=== PATIENT | female | born 1960 | race Caucasian/White ===

== ENCOUNTER 2024-06-22 05:45 | Inpatient (IN) ==
[2024-06-22 06:23] LABS: Basophils # (auto) 0.04 K/uL (0.00-0.20); Basophils % (auto) 0.4 %; Eosinophils # (auto) 0.12 K/uL (0.00-0.50); Eosinophils % (auto) 1.3 %; Hematocrit (blood only) 34.8 % (37.0-47.0); Immature Granulocytes # (auto) 0.04 K/uL (0.01-0.20); Immature Granulocytes % (auto) 0.4 %; Lymphocytes # (auto) 1.58 K/uL (1.20-3.40); Lymphocytes % (auto) 17.3 %; Mean Corpuscular Hemoglobin 32.3 pg (25.0-34.0); Mean Corpuscular Hgb Conc 34.5 g/dL (32.0-36.0); Mean Corpuscular Volume 93.5 fL (80.0-100.0); Mean Platelet Volume 9.5 fL (9.4-12.4); Monocytes # (auto) 0.65 K/uL (0.11-0.59); Monocytes % (auto) 7.1 %; Neutrophils # (auto) 6.69 K/uL (1.40-6.50); Neutrophils % (auto) 73.5 %; Platelet Count 243 K/uL (130-400); RDW Coefficient of Variation 12.5 % (11.5-14.5); RDW Standard Deviation 43.1 fL (36.4-46.3); Red Blood Count 3.72 M/uL (4.20-5.40); White Blood Count 9.12 K/ul (4.8-10.8)
--- NOTE | 2024-06-22 06:34 | Emergency Department Note ---
Impression & Plan Acute pulmonary embolism, Acute respiratory failure with hypoxia ED Provider Note NAME: ALEX BARNES AGE: 63 SEX: F : 1960 ARRIVES VIA: Ambulance INFORMANT: Patient, ED PROVIDER(S): Scottie Baca DO CHIEF COMPLAINT: Chest pain and shortness of breath HPI: Patient is a 63-year-old female who presents to the ER for chest pain and not acting right. Symptoms started this morning around 4:45 AM per the who is present at bedside and provides additional history. Patient notes that chest pain started suddenly and has been constant. She also had shortness of breath. Pain is worse with breathing. They have been traveling in the semitruck. Patient denies any headache or change in vision. No belly pain, nausea, vomiting or diarrhea. provides additional history as well and notes that patient did have some diarrhea the other day. No dysuria, urgency, or frequency but she did urinate herself. He notes that she came out of the truck the wrong way and did not make it to the bathroom on time and urinated herself. ADDITIONAL HISTORY OBTAINED: As per the she did have some diarrhea 2 days ago and has been confused today. Chronic Medical/Social Conditions Affecting Care: Per HPI PAST MEDICAL HISTORY:See Below PAST SURGICAL HISTORY:See Below FAMILY HISTORY:See Below SOCIAL HISTORY:See Below HOME MEDICATIONS:See Below ALLERGIES:See Below VITALS:See Below PHYSICAL EXAMINATION: GENERAL: Sitting up in bed, alert, well appearing, well nourished, no distress, non-toxic EYE EXAM: normal conjunctiva. PERRL and EOM's grossly intact. OROPHARYNX: no exudate, no erythema, lips, buccal mucosa, and tongue normal and mucous membranes are moist NECK: supple, no nuchal rigidity, no adenopathy, non-tender LUNGS: Clear to auscultation. Normal chest wall mechanics HEART: no murmurs, S1 normal and S2 normal ABDOMEN: abdomen soft, non-tender, normo-active bowel sounds, no masses, no rebound or guarding. UPPER EXTREMITIES: upper extremities are grossly normal. LOWER EXTREMITIES: No pitting edema. NEURO EXAM: Awake alert oriented to person not year, cranial nerves II-XII intact, normal speech, no weakness of arms, no weakness of legs. No drift. Finger to nose intact. Gross sensation intact. MEDICAL DECISION MAKING: Patient is a 63-year-old female who presents ER for the below stated complaint. IV was established and blood work was obtained. She was found to be hypoxic and placed on 3 L nasal cannula. She was 87% on room air. Labs showed no significant leukocytosis or anemia. BMP with mild hypokalemia 3.2. LFTs and bilirubin were unremarkable. Troponin resulted at 211. She was given aspirin prior to arrival via EMS 324 as well as a DuoNeb. She was given nitro while here in the ER. D-dimer was obtained and due to issues with lab and hemolyzation was significant delayed and then redrawn and consequently patient was sent to CT as she was hypoxic having pleuritic chest pain with an elevated troponin to rule out PE. CT angio showed bilateral PEs. Discussed with radiology who called and noted there were bilateral PEs. Patient was placed on heparin drip and bolus following discussion with patient and family. Discussed with the groundskeeping maintenance who evaluate the patient at bedside. Recommended discussing with case here to see if she was a candidate for intervention although he favors very unlikely. I discussed with Dr. Bo Avila who reviewed it with their interventionalists and noted that patient would not be a candidate. Patient will stay here. She remained on nasal cannula and heparin drip. Again I favor the troponin is likely secondary to the right heart strain from PEs. Patient and family declined TNK. Consults/Care Managements Discussions: Per [facility] Triage Nursing notes reviewed. Limited review of prior medical records performed Vital Signs: reviewed and remarkable for hypertensive and tachycardic Differential diagnosis: Cardiac ischemia, aortic dissection, pulmonary embolism, pneumothorax, pneumonia, pericarditis, myocarditis, esophageal rupture, GERD, cholecystitis, pancreatitis, musculoskeletal, as well as other pathologies. Differential diagnoses includes but is not limited to toxic, metabolic, infectious, traumatic, cardiac, neurologic, hematologic, psychiatric and inflammatory etiologies. ER treatment provided: See below Diagnostics interpreted by me include EKG and cardiac monitoring as listed below: -Cardiac Monitoring: An order was placed for continuous cardiac monitoring. The monitor shows a rate of 100 with sinus rhythm. -ECG: Sinus tachycardia rate of 111 Normal axis Poor baseline Nonspecific ST wave changes V5 3 through V6 EKG #2 Sinus tachycardia rate of 113 Normal axis No PVCs QTc [address] ST depressions in V2 through V6 -Laboratory studies:Interpreted by me as stated above in MDM and shown below. Imaging studies: Xrays: As interpreted by me: Portable AP upright 1 view of the chest shows cephalization CTs show: none Procedures:none Critical Care: I have personally spent 75 minutes of critical care time in the direct management of this patient. This includes bedside care, interpretation of diagnostic studies, and testing, discussion with consultants, patient, and family members, and other required patient management activities. This 75 minutes is in excess of all separately billable procedures. Past Med/Surg History Problem List (Updated 06/22/24 @ 12:10 by Scottie Baca DO) Bipolar 1 disorder Mood disorder Atrial fibrillation HTN (hypertension) Acute respiratory failure with hypoxia (Acute) Elevated troponin Acute pulmonary embolism (Acute) Social History Smoking Status: Never smoker Hx Alcohol Use: No Hx Substance Use: No Preferred Language: [place]an Communication Ability: Effective Chef French Required: No Beliefs That Will Affect Care: None Current Living Situation: Spouse Feels Safe at Home: Yes Assistive Devices: Glasses Home Meds Home Medications Medication Instructions Recorded Confirmed aspirin 81 mg capsule 81 mg PO DAILY 06/22/24 06/22/24 famotidine 40 mg tablet 40 mg PO DAILY 06/22/24 06/22/24 metoprolol tartrate 25 mg tablet 25 mg PO BID 06/22/24 06/22/24 venlafaxine 150 mg 150 mg PO DAILY 06/22/24 06/22/24 capsule,extended release 24 hr venlafaxine 37.5 mg 37.5 mg PO DAILY 06/22/24 06/22/24 capsule,extended release 24 hr ziprasidone HCl 80 mg capsule 80 mg PO BID 06/22/24 06/22/24 (Ranjith) Results & Data (ED) Vital Signs Vital Signs - 24 hr 06/22/24 05:53 06/22/24 06:02 06/22/24 06:03 Temperature 36.8 C Temperature Source Oral Pulse Rate 114 H 110 H Pulse Rate [Apical] Pulse Rate from SpO2 Sensor Respiratory Rate 24 Blood Pressure 148/98 H Blood Pressure [Right Arm] Blood Pressure Mean 114 Blood Pressure Mean [Right Arm] Pulse Oximetry 97 94 Oxygen Delivery Method Nasal Cannula Room Air Oxygen Flow Rate 2 Sepsis Recent Fever Within 48 Hours No Sepsis New/Unexplained Change in Mental Status No Sepsis Action Taken by Nursing No Action Required Oxygen Flow Rate - Titration Pulse Oximetry Post Tiitration 06/22/24 06:45 06/22/24 07:05 06/22/24 07:08 Temperature Temperature Source Pulse Rate 120 H Pulse Rate [Apical] 113 H Pulse Rate from SpO2 Sensor Respiratory Rate 26 H 25 H Blood Pressure Blood Pressure [Right Arm] 151/101 H Blood Pressure Mean Blood Pressure Mean [Right Arm] 117 Pulse Oximetry 93 88 L 0 L Oxygen Delivery Method Room Air Room Air Oxygen Flow Rate 88 Sepsis Recent Fever Within 48 Hours Sepsis New/Unexplained Change in Mental Status Sepsis Action Taken by Nursing Oxygen Flow Rate - Titration 2 Pulse Oximetry Post Tiitration 94 06/22/24 07:11 06/22/24 07:11 06/22/24 07:11 Temperature Temperature Source Pulse Rate Pulse Rate [Apical] Pulse Rate from SpO2 Sensor Respiratory Rate Blood Pressure 141/98 H 141/98 H 141/98 H Blood Pressure [Right Arm] Blood Pressure Mean 115 115 115 Blood Pressure Mean [Right Arm] Pulse Oximetry Oxygen Delivery Method Oxygen Flow Rate Sepsis Recent Fever Within 48 Hours Sepsis New/Unexplained Change in Mental Status Sepsis Action Taken by Nursing Oxygen Flow Rate - Titration Pulse Oximetry Post Tiitration 06/22/24 07:11 06/22/24 07:11 06/22/24 07:11 Temperature Temperature Source Pulse Rate 115 H Pulse Rate [Apical] Pulse Rate from SpO2 Sensor 114 H Respiratory Rate 23 Blood Pressure 141/98 H 141/98 H Blood Pressure [Right Arm] Blood Pressure Mean 115 115 Blood Pressure Mean [Right Arm] Pulse Oximetry 95 Oxygen Delivery Method Nasal Cannula Oxygen Flow Rate 2 Sepsis Recent Fever Within 48 Hours Sepsis New/Unexplained Change in Mental Status Sepsis Action Taken by Nursing Oxygen Flow Rate - Titration Pulse Oximetry Post Tiitration 06/22/24 07:11 06/22/24 07:30 06/22/24 07:30 Temperature Temperature Source Pulse Rate Pulse Rate [Apical] Pulse Rate from SpO2 Sensor Respiratory Rate Blood Pressure 141/98 H 133/98 133/98 Blood Pressure [Right Arm] Blood Pressure Mean 115 112 112 Blood Pressure Mean [Right Arm] Pulse Oximetry Oxygen Delivery Method Oxygen Flow Rate Sepsis Recent Fever Within 48 Hours Sepsis New/Unexplained Change in Mental Status Sepsis Action Taken by Nursing Oxygen Flow Rate - Titration Pulse Oximetry Post Tiitration 06/22/24 07:30 06/22/24 07:30 06/22/24 07:30 Temperature Temperature Source Pulse Rate Pulse Rate [Apical] Pulse Rate from SpO2 Sensor Respiratory Rate Blood Pressure 133/98 133/98 133/98 Blood Pressure [Right Arm] Blood Pressure Mean 112 112 112 Blood Pressure Mean [Right Arm] Pulse Oximetry Oxygen Delivery Method Oxygen Flow Rate Sepsis Recent Fever Within 48 Hours Sepsis New/Unexplained Change in Mental Status Sepsis Action Taken by Nursing Oxygen Flow Rate - Titration Pulse Oximetry Post Tiitration 06/22/24 07:30 06/22/24 07:30 06/22/24 07:30 Temperature Temperature Source Pulse Rate Pulse Rate [Apical] Pulse Rate from SpO2 Sensor Respiratory Rate Blood Pressure 133/98 133/98 133/98 Blood Pressure [Right Arm] Blood Pressure Mean 112 112 112 Blood Pressure Mean [Right Arm] Pulse Oximetry Oxygen Delivery Method Oxygen Flow Rate Sepsis Recent Fever Within 48 Hours Sepsis New/Unexplained Change in Mental Status Sepsis Action Taken by Nursing Oxygen Flow Rate - Titration Pulse Oximetry Post Tiitration 06/22/24 07:30 06/22/24 07:30 06/22/24 07:47 Temperature Temperature Source Pulse Rate 111 H Pulse Rate [Apical] Pulse Rate from SpO2 Sensor 110 H Respiratory Rate 28 H Blood Pressure 133/98 133/98 Blood Pressure [Right Arm] Blood Pressure Mean 112 112 Blood Pressure Mean [Right Arm] Pulse Oximetry 96 Oxygen Delivery Method Oxygen Flow Rate Sepsis Recent Fever Within 48 Hours Sepsis New/Unexplained Change in Mental Status Sepsis Action Taken by Nursing Oxygen Flow Rate - Titration Pulse Oximetry Post Tiitration 06/22/24 08:07 06/22/24 08:07 06/22/24 08:07 Temperature Temperature Source Pulse Rate Pulse Rate [Apical] Pulse Rate from SpO2 Sensor Respiratory Rate Blood Pressure 118/93 118/93 118/93 Blood Pressure [Right Arm] Blood Pressure Mean 100 100 100 Blood Pressure Mean [Right Arm] Pulse Oximetry Oxygen Delivery Method Oxygen Flow Rate Sepsis Recent Fever Within 48 Hours Sepsis New/Unexplained Change in Mental Status Sepsis Action Taken by Nursing Oxygen Flow Rate - Titration Pulse Oximetry Post Tiitration 06/22/24 08:07 06/22/24 08:08 06/22/24 08:23 Temperature Temperature Source Pulse Rate 115 H 111 H Pulse Rate [Apical] Pulse Rate from SpO2 Sensor 115 H 111 H Respiratory Rate 23 26 H Blood Pressure 118/93 Blood Pressure [Right Arm] Blood Pressure Mean 100 Blood Pressure Mean [Right Arm] Pulse Oximetry 97 97 Oxygen Delivery Method Nasal Cannula Oxygen Flow Rate 2 Sepsis Recent Fever Within 48 Hours Sepsis New/Unexplained Change in Mental Status Sepsis Action Taken by Nursing Oxygen Flow Rate - Titration Pulse Oximetry Post Tiitration 06/22/24 08:30 06/22/24 08:30 06/22/24 08:30 Temperature Temperature Source Pulse Rate Pulse Rate [Apical] Pulse Rate from SpO2 Sensor Respiratory Rate Blood Pressure 140/98 140/98 140/98 Blood Pressure [Right Arm] Blood Pressure Mean 115 115 115 Blood Pressure Mean [Right Arm] Pulse Oximetry Oxygen Delivery Method Oxygen Flow Rate Sepsis Recent Fever Within 48 Hours Sepsis New/Unexplained Change in Mental Status Sepsis Action Taken by Nursing Oxygen Flow Rate - Titration Pulse Oximetry Post Tiitration 06/22/24 08:30 06/22/24 08:30 06/22/24 08:30 Temperature Temperature Source Pulse Rate Pulse Rate [Apical] Pulse Rate from SpO2 Sensor Respiratory Rate Blood Pressure 140/98 140/98 140/98 Blood Pressure [Right Arm] Blood Pressure Mean 115 115 115 Blood Pressure Mean [Right Arm] Pulse Oximetry Oxygen Delivery Method Oxygen Flow Rate Sepsis Recent Fever Within 48 Hours Sepsis New/Unexplained Change in Mental Status Sepsis Action Taken by Nursing Oxygen Flow Rate - Titration Pulse Oximetry Post Tiitration 06/22/24 08:30 06/22/24 08:30 06/22/24 08:32 Temperature Temperature Source Pulse Rate 111 H Pulse Rate [Apical] Pulse Rate from SpO2 Sensor 111 H Respiratory Rate 29 H Blood Pressure 140/98 140/98 Blood Pressure [Right Arm] Blood Pressure Mean 115 115 Blood Pressure Mean [Right Arm] Pulse Oximetry 96 Oxygen Delivery Method Oxygen Flow Rate Sepsis Recent Fever Within 48 Hours Sepsis New/Unexplained Change in Mental Status Sepsis Action Taken by Nursing Oxygen Flow Rate - Titration Pulse Oximetry Post Tiitration 06/22/24 09:11 Temperature Temperature Source Pulse Rate 119 H Pulse Rate [Apical] Pulse Rate from SpO2 Sensor Respiratory Rate 30 H Blood Pressure Blood Pressure [Right Arm] Blood Pressure Mean Blood Pressure Mean [Right Arm] Pulse Oximetry Oxygen Delivery Method Oxygen Flow Rate Sepsis Recent Fever Within 48 Hours Sepsis New/Unexplained Change in Mental Status Sepsis Action Taken by Nursing Oxygen Flow Rate - Titration Pulse Oximetry Post Tiitration Laboratory Data 06/22/24 05:50 06/22/24 05:50 Lab Results 06/22/24 06/22/24 06/22/24 Range/Units 05:50 05:50 07:44 WBC 9.12 (4.8-10.8) K/ul RBC 3.72 L (4.20-5.40) M/uL Hgb 12.0 (12.0-16.0) g/dl Hct 34.8 L (37.0-47.0) % MCV 93.5 (80.0-100.0) fL MCH 32.3 (25.0-34.0) pg MCHC 34.5 (32.0-36.0) g/dL RDW Std Deviation 43.1 (36.4-46.3) fL RDW Coeff of Nancy 12.5 (11.5-14.5) % Plt Count 243 (130-400) K/uL MPV 9.5 (9.4-12.4) fL Immature Gran % (Auto) 0.4 % Neut % (Auto) 73.5 % Lymph % (Auto) 17.3 % Motley % (Auto) 7.1 % Eos % (Auto) 1.3 % Baso % (Auto) 0.4 % Neut # (Auto) 6.69 H (1.40-6.50) K/uL Lymph # (Auto) 1.58 (1.20-3.40) K/uL Motley # (Auto) 0.65 H (0.11-0.59) K/uL Eos # (Auto) 0.12 (0.00-0.50) K/uL Baso # (Auto) 0.04 (0.00-0.20) K/uL Immature Gran # (Auto) 0.04 (0.01-0.20) K/uL PT 11.3 (9.0-12.0) Seconds INR 1.0 (0.9-1.1) D-Dimer 02846 H* Cancelled (0-500) ug/L FEU Sodium 136 (136-145) mmol/L Potassium 3.2 L (3.5-5.1) mmol/L Chloride 103 (98-107) mmol/L Carbon Dioxide 23 (21-32) mmol/L Anion Gap 10 (3-11) BUN 12 (6-23) mg/dl Creatinine 1.29 H (0.6-1.2) mg/dl Est Cr Clr Drug Dosing 50.2 ml/min eGFR 46.06 BUN/Creatinine Ratio 9.3 L (10-20) Glucose 155 H (70-99(Fasting)) mg/dl Calcium 8.6 (8.6-10.3) mg/dl Magnesium 2.0 (1.7-2.4) mg/dl Total Bilirubin 0.5 (0.2-1.0) mg/dl AST 32 (13-39) U/L ALT 24 (7-52) U/L Alkaline Phosphatase 73 (34-104) U/L Troponin I High Sens 211.1 H* 518.0 H* D (0-14) pg/ml Total Protein 6.6 (6.0-8.3) gm/dl Albumin 4.2 (3.4-5.0) gm/dl Globulin 2.4 L (2.5-4.0) gm/dl Albumin/Globulin Ratio 1.8 (0.9-2) Lipase 10 L (11-82) U/L Adenovirus (PCR) Not Detected (NotDetected) B. pertussis DNA (PCR) Not Detected (NotDetected) B.parapertussis DNA PCR Not Detected (NotDetected) C. pneumoniae DNA (PCR) Not Detected (NotDetected) Coronavirus OC43 (PCR) Not Detected (NotDetected) Coronavirus HKU1 (PCR) Not Detected (NotDetected) Coronavirus 229E (PCR) Not Detected (NotDetected) SARS-CoV-2 (PCR) Not Detected (NotDetected) Coronavirus NL63 (PCR) Not Detected (NotDetected) Human Metapneumovir PCR Not Detected (NotDetected) Influenza Type A (PCR) Not Detected (NotDetected) Influenza Type B (PCR) Not Detected (NotDetected) M. pneumoniae (PCR) Not Detected (NotDetected) Parainfluenza 1 (PCR) Not Detected (NotDetected) Parainfluenza 2 (PCR) Not Detected (NotDetected) Parainfluenza 3 (PCR) Not Detected (NotDetected) Parainfluenza 4 (PCR) Not Detected (NotDetected) RSV (PCR) Not Detected (NotDetected) Entero/Rhino (PCR) Not Detected (NotDetected) Administered Medications Heparin Sodium/Dextrose (Heparin 58992 Unit/500 Ml D5w) 25,000 units in 500 mls @ 28 mls/hr IV .[id number] TAVON; Protocol Stop: 07/22/24 08:44 Last Admin: 06/22/24 09:06 Dose: 1,400 units/hr, 28 mls/hr Documented By: TRANG Co-signed By: ISADORA Lactated Ringer's (Lr) 1,000 mls @ 100 mls/hr IV .Q10H TAVON Stop: 06/22/24 21:29 Last Admin: 06/22/24 11:39 Dose: 100 mls/hr Documented By: GABBY Discontinued Medications Heparin Sodium (Porcine) (Heparin Sod (Porcine) 1000 Unit/Ml) 1 units IV NOW ONE Stop: 06/22/24 08:41 Last Admin: 06/22/24 09:02 Dose: 6,000 units Documented By: TRANG Co-signed By: ISADORA Heparin Sodium/Dextrose (Heparin Iv Adult Wt-Based Standard W/ Initial Bolus Protocol) 1 each IV NOW STA; Protocol Stop: 06/22/24 08:26 Last Admin: 06/22/24 09:19 Dose: Not Given Documented By: TRANG Sodium Chloride (Nss) 1,000 mls @ 999 mls/hr IV .Q1H1M ONE Stop: 06/22/24 07:34 Last Infusion: 06/22/24 09:11 Dose: Infused Documented By: Admin: 06/22/24 06:44 Dose: 999 mls/hr Documented By: MEGAN Ioversol (Optiray 320 125ml) 118 ml IV ONCE ONE Stop: 06/22/24 07:56 Last Admin: 06/22/24 07:56 Dose: 118 ml Documented By: ANDREA Miscellaneous Information (Patient's Allergy Info Needs Entered) 1 each N/A Q30M STA Stop: 06/22/24 11:15 Last Admin: 06/22/24 11:40 Dose: 1 each Documented By: GABBY Nitroglycerin (Nitroglycerin Sl 0.4 Mg/Tab Tab) 0.4 mg SL NOW STA Stop: 06/22/24 06:35 Last Admin: 06/22/24 06:44 Dose: 0.4 mg Documented By: MEGAN Potassium Chloride (Potassium Chloride Crtab 20 Meq Tabcr) 40 meq PO NOW STA Stop: 06/22/24 07:20 Last Admin: 06/22/24 07:25 Dose: 40 meq Documented By: AM Imaging Data Radiologist's Impression: Chest X-Ray 06/22/24 05:46 EXAM: XR chest 1V portable CLINICAL HISTORY: Chest pain, nonspecific TECHNIQUE: An X-ray image of the chest is obtained in AP projection. COMPARISON: No prior studies are available for comparison. FINDINGS: Pulmonary Parenchyma: Bilateral hilar shadows and bronchovascular markings at both lung nicole denoting congestive changes. Bilateral lower lung zones linear reticular shadows, likely atelectatic bands. No pulmonary nodules are identified. No evidence of pleural effusion or pleural thickening. Heart and Mediastinum: Heart size and shape are normal. No mediastinal widening or masses. No hilar or mediastinal lymphadenopathy. Bony Thorax: Bony thorax appears intact without fractures or deformities. Soft Tissues: Soft tissues overlying the chest wall are unremarkable. IMPRESSION: 1. Bilateral hilar shadows and bronchovascular markings at both lung nicole denoting congestive changes. 2. Bilateral lower lung zones linear reticular shadows, likely atelectatic bands. 3. Clinical lab correlation and follow-up is advised. Electronically signed by Jeff Jones 06-22-2024 06:59 AM Chest CTA 06/22/24 07:40 HISTORY: Chest pain TECHNIQUE: CTA imaging of the chest was performed following uneventful administration 118 mL of Optiray 320 IV contrast. Images are presented in axial, sagittal, and coronal reformats. Coronal and sagittal MIP reconstructions are provided. COMPARISON: None. FINDINGS: Lungs: Focal nodular opacity within theAnterior right upper lobe measuring 1.7 cm on series 3 image 69 is nonspecific. Mild areas of atelectasis throughout both lungs. No pneumothorax or pleural effusion. Central tracheobronchial tree is patent. Heart/Mediastinum: Top normal heart size. No suspicious mediastinal or hilar lymph nodes. Small hiatal hernia. Thoracic esophagus is unremarkable. Coronary artery calcifications are present. Vasculature: Positive for acute pulmonary emboli involving all lobes of both lungs. The most central emboli are within the lobar arteries. There is evidence of right heart strain with elevated RV to LV ratio. Dilated Ascending thoracic aorta measuring 4.1 cm in diameter. No evidence of aortic dissection or acute aortic process. Mild atherosclerotic vascular disease of the aorta and arch vessels. Soft Tissues: Unremarkable. Upper Abdomen: Unremarkable. Bones: Mild degenerative changes of the spine. IMPRESSION: 1. Positive for acute pulmonary emboli with extensive emboli involving all lobes of both lungs. The most central or within the lobar pulmonary arteries. Evidence of right heart strain with elevated RV to LV ratio. 2. Nonspecific 1.7 cm anterior right upper lobe opacity on series 3 image 69 is nonspecific and could represent pulmonary infarct versus an infectious or inflammatory opacity. Follow-up chest CT is recommended in 1 to 2 months to ensure resolution. 3. Dilated ascending thoracic aorta measuring 4.1 cm in diameter. 4. Numerous additional chronic and/or incidental findings as above. Findings were discussed with the ordering provider Dr. Scottie Baca via telephone at 8:20 AM on 06/22/2024. Electronically signed by Lavon Emmanuel 06-22-2024 08:21 AM Discharge Plan Visit Data Chief Complaint: Cardiac Assessment Stated Complaint: CHEST PAIN, SOB X1 HOUR, COUGH FOR 1 WEEK ED Provider: Scottie Baca Discharge Problem: Acute pulmonary embolism, Acute respiratory failure with hypoxia Discharge Problem: Acute pulmonary embolism Qualifiers: Pulmonary embolism type: unspecified Acute cor pulmonale presence: unspecified Qualified Code(s): I26.99 - Other pulmonary embolism without acute cor pulmonale
[2024-06-22] MEDS: SODIUM CHLORIDE 0.9% 1,000 ML IV ONE (06:44)
[2024-06-22] MEDS: NITROGLYCERIN SL 0.4 MG/TAB TAB SL STA (06:44)
[2024-06-22 06:45] LABS: Albumin Globulin Ratio 1.8 (0.9-2); Albumin Level 4.2 gm/dl (3.4-5.0); BUN Creatinine Ratio 9.3 (10-20); Bilirubin,Total 0.5 mg/dl (0.2-1.0); Calcium 8.6 mg/dl (8.6-10.3); Creatinine Clr Calc Pharmacy 50.2 ml/min; Globulin 2.4 gm/dl (2.5-4.0); Potassium 3.2 mmol/L (3.5-5.1); Total Protein 6.6 gm/dl (6.0-8.3)
--- NOTE | 2024-06-22 07:00 | XRay Report ---
EXAM: XR chest 1V portable CLINICAL HISTORY: Chest pain, nonspecific TECHNIQUE: An X-ray image of the chest is obtained in AP projection. COMPARISON: No prior studies are available for comparison. FINDINGS: Pulmonary Parenchyma: Bilateral hilar shadows and bronchovascular markings at both lung nicole denoting congestive changes. Bilateral lower lung zones linear reticular shadows, likely atelectatic bands. No pulmonary nodules are identified. No evidence of pleural effusion or pleural thickening. Heart and Mediastinum: Heart size and shape are normal. No mediastinal widening or masses. No hilar or mediastinal lymphadenopathy. Bony Thorax: Bony thorax appears intact without fractures or deformities. Soft Tissues: Soft tissues overlying the chest wall are unremarkable. IMPRESSION: 1. Bilateral hilar shadows and bronchovascular markings at both lung nicole denoting congestive changes. 2. Bilateral lower lung zones linear reticular shadows, likely atelectatic bands. 3. Clinical lab correlation and follow-up is advised. Electronically signed by Jeff Jones 06-22-2024 06:59 AM
[2024-06-22 07:01] LABS: Troponin I High Sensitivity 211.1 pg/ml (0-14)
[2024-06-22 07:06] LABS: Adenovirus PCR Not Detected (NotDetected); Bordetella parapertussis PCR Not Detected (NotDetected); Bordetella pertussis PCR Not Detected (NotDetected); Chlamydia pneumoniae PCR Not Detected (NotDetected); Coronavirus 229E PCR Not Detected (NotDetected); Coronavirus CoV-2 (COVID19)PCR Not Detected (NotDetected); Coronavirus HKU1 PCR Not Detected (NotDetected); Coronavirus NL63 PCR Not Detected (NotDetected); Coronavirus OC43PCR Not Detected (NotDetected); Human Metapneumovirus PCR Not Detected (NotDetected); Influenza A PCR Not Detected (NotDetected); Influenza B PCR Not Detected (NotDetected); Mycoplasma pneumoniae PCR Not Detected (NotDetected); Parainfluenza Virus 1 PCR Not Detected (NotDetected); Parainfluenza Virus 2 PCR Not Detected (NotDetected); Parainfluenza Virus 3 PCR Not Detected (NotDetected); Parainfluenza Virus 4 PCR Not Detected (NotDetected); Respiratory Syncytial VirusPCR Not Detected (NotDetected); Rhinovirus/Enterovirus PCR Not Detected (NotDetected)
[2024-06-22 07:23] LABS: Prothrombin Time 11.3 Seconds (9.0-12.0)
[2024-06-22] MEDS: POTASSIUM CHLORIDE CRTAB 20 MEQ TABCR PO STA (07:25)
[2024-06-22] MEDS: OPTIRAY 320 125ml IV ONE (07:56)
--- NOTE | 2024-06-22 08:22 | CT Scan Report ---
HISTORY: Chest pain TECHNIQUE: CTA imaging of the chest was performed following uneventful administration 118 mL of Optiray 320 IV contrast. Images are presented in axial, sagittal, and coronal reformats. Coronal and sagittal MIP reconstructions are provided. COMPARISON: None. FINDINGS: Lungs: Focal nodular opacity within theAnterior right upper lobe measuring 1.7 cm on series 3 image 69 is nonspecific. Mild areas of atelectasis throughout both lungs. No pneumothorax or pleural effusion. Central tracheobronchial tree is patent. Heart/Mediastinum: Top normal heart size. No suspicious mediastinal or hilar lymph nodes. Small hiatal hernia. Thoracic esophagus is unremarkable. Coronary artery calcifications are present. Vasculature: Positive for acute pulmonary emboli involving all lobes of both lungs. The most central emboli are within the lobar arteries. There is evidence of right heart strain with elevated RV to LV ratio. Dilated Ascending thoracic aorta measuring 4.1 cm in diameter. No evidence of aortic dissection or acute aortic process. Mild atherosclerotic vascular disease of the aorta and arch vessels. Soft Tissues: Unremarkable. Upper Abdomen: Unremarkable. Bones: Mild degenerative changes of the spine. IMPRESSION: 1. Positive for acute pulmonary emboli with extensive emboli involving all lobes of both lungs. The most central or within the lobar pulmonary arteries. Evidence of right heart strain with elevated RV to LV ratio. 2. Nonspecific 1.7 cm anterior right upper lobe opacity on series 3 image 69 is nonspecific and could represent pulmonary infarct versus an infectious or inflammatory opacity. Follow-up chest CT is recommended in 1 to 2 months to ensure resolution. 3. Dilated ascending thoracic aorta measuring 4.1 cm in diameter. 4. Numerous additional chronic and/or incidental findings as above. Findings were discussed with the ordering provider Dr. Scottie Baca via telephone at 8:20 AM on 06/22/2024. Electronically signed by Lavon Emmanuel 06-22-2024 08:21 AM
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
[2024-06-22 08:36] LABS: D Dimer 15610 ug/L FEU (0-500)
[2024-06-22] MEDS: HEPARIN SOD (PORCINE) 1000 UNIT/ML IV ONE (09:02)
[2024-06-22] MEDS: HEPARIN 25000 UNIT/500 ML D5W 25,000 UNITS/500 ML BAG IV SCH (09:06)
[2024-06-22] MEDS: Heparin IV Adult Wt-Based Standard w/ INITIAL Bolus Protocol IV STA (09:19)
[2024-06-22 10:30] LABS: Appearance Urine Clear (Clear); Bacteria Urine Automated None Seen (None Seen); Bilirubin Urine Negative (Negative); Blood Urine Negative (Negative); Cast Urine Automated 0-2 /lpf (0-2); Color Urine Yellow; Epithelial Cell Urine Auto 0-2 /hpf (0-2); Glucose Urine UA Negative (Negative); Ketones Urine Negative (Negative); Leukocyte Esterase Urine 1+ (Negative); Nitrite Urine Negative (Negative); Protein Urine Negative (Negative); RBC Urine Automated 0-2 /hpf (0-2); Specific Gravity Urine 1.026 (1.000-1.030); Urobilinogen Urine Negative (Negative); WBC Urine Automated 0-5 /hpf (0-5); pH Urine 5.5 (4.5-7.5)
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
[2024-06-22] MEDS: LACTATED RINGER'S 1,000 ML IV SCH (11:39)
[2024-06-22] MEDS: Patient's ALLERGY Info needs ENTERED STA (11:40)
[2024-06-22 12:16] LABS: Estimated Average Glucose 100 mg/dl; Hemoglobin A1C 5.1 % (4.5-5.6)
--- NOTE | 2024-06-22 13:14 | Electrocardiogram Report ---
Test Reason : Blood Pressure : */* mmHG Vent. Rate : 111 BPM Atrial Rate : 111 BPM P-R Int : 136 ms QRS Dur : 70 ms QT Int : 330 ms P-R-T Axes : 48 -9 -10 degrees QTcB Int : 448 ms Sinus tachycardia Low voltage QRS Inferior infarct , age undetermined Abnormal ECG No previous ECGs available Confirmed by Aramis Santana ([id number]) on 06/22/2024 1:14:52 PM Referred By: Confirmed By: Aramis Santana
[2024-06-22 16:29] LABS: ANTI-Xa, UFH(UnfractionatedHep 1.02 IU/ml (0.3-0.7)
[2024-06-22] MEDS: ACETAMINOPHEN 325 MG TAB PO PRN (18:02)
[2024-06-22] MEDS: ONDANSETRON INJ 2 MG/ML 2 ML VIAL IV PRN (19:20)
[2024-06-22] MEDS: BENZONATATE 100 MG CAPSULE PO PRN (19:20)
[2024-06-22] MEDS: ziprasidone HCL 80 MG CAP PO SCH (20:11)
[2024-06-22] MEDS ORDERED: POLYETHYLENE (MIRALAX) 17 GM PACK PO PRN (20:19)
[2024-06-23 01:23] LABS: ANTI-Xa, UFH(UnfractionatedHep 0.45 IU/ml (0.3-0.7)
[2024-06-23] MEDS: MoRPHine SULFATE 2 MG/ML CARP IV STA ×2 (02:34→02:59)
[2024-06-23 02:56] LABS: Basophils # (auto) 0.02 K/uL (0.00-0.20); Basophils % (auto) 0.2 %; Eosinophils # (auto) 0.01 K/uL (0.00-0.50); Eosinophils % (auto) 0.1 %; Hematocrit (blood only) 34.5 % (37.0-47.0); Hemoglobin 11.7 g/dl (12.0-16.0); Immature Granulocytes # (auto) 0.04 K/uL (0.01-0.20); Immature Granulocytes % (auto) 0.4 %; Lymphocytes # (auto) 1.47 K/uL (1.20-3.40); Lymphocytes % (auto) 14.2 %; Mean Corpuscular Hemoglobin 32.1 pg (25.0-34.0); Mean Corpuscular Hgb Conc 33.9 g/dL (32.0-36.0); Mean Corpuscular Volume 94.8 fL (80.0-100.0); Mean Platelet Volume 9.6 fL (9.4-12.4); Monocytes # (auto) 0.75 K/uL (0.11-0.59); Monocytes % (auto) 7.2 %; Neutrophils # (auto) 8.07 K/uL (1.40-6.50); Neutrophils % (auto) 77.9 %; Platelet Count 211 K/uL (130-400); RDW Standard Deviation 44.9 fL (36.4-46.3); Red Blood Count 3.64 M/uL (4.20-5.40); White Blood Count 10.36 K/ul (4.8-10.8)
[2024-06-23 05:04] LABS: Albumin Globulin Ratio 1.7 (0.9-2); BUN Creatinine Ratio 9.8 (10-20); Bilirubin,Total 0.6 mg/dl (0.2-1.0); Calcium 8.8 mg/dl (8.6-10.3); Creatinine Clr Calc Pharmacy 70.4 ml/min; Globulin 2.4 gm/dl (2.5-4.0); Total Protein 6.4 gm/dl (6.0-8.3)
[2024-06-23] MEDS: FAMOTIDINE 40 MG TABLET PO SCH (08:39)
[2024-06-23] MEDS: VENLAFAXINE HCL XR 150 MG CAPXR PO SCH (08:39)
[2024-06-23] MEDS: VENLAFAXINE HCL XR 37.5 MG CAPXR PO SCH (08:39)
[2024-06-23] MEDS: oxyCODONE HCL IR 5 MG TAB (IMMEDIATE RELEASE) PO PRN (10:25)
--- NOTE | 2024-06-23 10:40 | Hospitalist Progress Note ---
Date of Service June 23, 2024 Assessment & Plan (1) Acute respiratory failure with hypoxia: (2) Elevated troponin: (3) Acute pulmonary embolism: (4) HTN (hypertension): (5) Atrial fibrillation: (6) Mood disorder: (7) Bipolar 1 disorder: Plan The patient is a 63-year-old female with a past medical history of HTN, A-fib, mood disorder who presents to the ED on 06/22/2024 with complaints of shortness of breath and near syncope and chest pain found to have extensive bilateral PE with right heart strain. Extensive Acute Bilateral PE Acute hypoxic respiratory failure Right heart strain Right upper lobe opacitypossible infarct Patient presents with shortness of breath, chest pain and near syncope. 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 Evidence of right heart strain present. Nonspecific 1.7 cm anterior right upper lobe opacity; possibly pulmonary infarct High-sensitivity troponin elevated to 690.8 and down trended Echocardiogram shows EF of greater than 70%; Castellano sign present. Right ventricle mildly dilated. Continue on heparin drip; plan to transition to DOAC's; will need at least 6 months of anticoagulation. Will obtain duplex of lower extremity Age-appropriate cancer screening needed As outpatient Will need repeat echocardiogram in 3 months Hx HTN/AF: Not on AC at home, hold metoprolol for now Hx of mood disorder/bipolar: Continue Geodon/Effexor Full code DVT prophylaxis: Heparin drip Time spent evaluating patient, direct bedside care, chart review, placing orders, interpretation of diagnostic studies, discussion with consultants, patient, and family members, as well as other required patient management activities is 50 minutes Please note the above document was generated using voice recognition software. It may contain grammatical, syntax or spelling errors. Any formal questions or concerns about the content, text or information contained within the body of this dictation should be directly addressed to the provider for clarification Admission and Anticipated Discharge Date Admission Date: June 22, 2024 Subjective Patient seen and examined at bedside She is lying on the bed comfortably; not in distress She reports chest pain on deep inspiration Review of Systems Review of Systems: All systems reviewed & are unremarkable except as noted in Subjective Physical Exam Physical Exam: Constitutional: WD/WN, vitals as above, NAD, sitting up in bed, pleasant, conversing easily Respiratory: normal respiratory effort, lungs clear to auscultation, no wheeze, rales, rhonchi. Normal insp/exp effort, no accessory muscle use Cardiovascular: RRR, no murmur, no edema Vessels: no JVD or carotid bruit Chest: normal inspection of chest Abdomen: normal bowel sounds, soft, nontender, no hepatosplenomegaly Musculoskeletal: no cyanosis or clubbing, extremities motor strength 5/5 Skin: no rashes, warm and dry normal turgor Neurologic: PERRL, EOMI, accommodation nl, no face palsy, no dysarthria CN's II- XI intact bilaterally and moves all extremities Results & Data Results & Data Vital Signs (Past 12 Hours) Vital Signs Temp Pulse Pulse Resp BP BP BP 06/23/24 09:13 06/23/24 08:01 36.8 C 98 H 22 115/87 06/23/24 03:44 108/70 06/23/24 03:21 86 24 06/23/24 03:18 90 23 06/23/24 02:48 129/85 06/23/24 02:48 129/85 06/23/24 02:48 129/85 06/23/24 02:48 129/85 06/23/24 02:48 129/85 06/23/24 02:48 129/85 06/23/24 02:48 129/85 06/23/24 02:48 129/85 06/23/24 02:48 129/85 06/23/24 02:48 129/85 06/23/24 02:48 129/85 06/23/24 02:48 129/85 06/23/24 02:48 129/85 06/23/24 02:48 129/85 06/23/24 02:48 129/85 06/23/24 02:39 92 H 25 H 06/23/24 02:09 95 H 23 06/23/24 01:42 86 24 06/23/24 01:06 88 19 06/23/24 00:33 88 24 06/23/24 00:24 36.8 C 92 H 16 133/88 06/23/24 00:03 88 23 06/22/24 23:30 88 23 06/22/24 23:30 93 H 06/22/24 23:09 90 24 Pulse Ox O2 Del Method O2 Flow Rate 06/23/24 09:13 Nasal Cannula 2 06/23/24 08:01 96 Nasal Cannula 2 06/23/24 03:44 06/23/24 03:21 95 06/23/24 03:18 94 06/23/24 02:48 06/23/24 02:48 06/23/24 02:48 06/23/24 02:48 06/23/24 02:48 06/23/24 02:48 06/23/24 02:48 06/23/24 02:48 06/23/24 02:48 06/23/24 02:48 06/23/24 02:48 06/23/24 02:48 06/23/24 02:48 06/23/24 02:48 06/23/24 02:48 06/23/24 02:39 97 06/23/24 02:09 97 06/23/24 01:42 98 06/23/24 01:06 98 06/23/24 00:33 98 06/23/24 00:24 98 Nasal Cannula 2 06/23/24 00:03 97 06/22/24 23:30 99 06/22/24 23:30 06/22/24 23:09 98 (3) Acute pulmonary embolism Acute cor pulmonale presence: unspecified Pulmonary embolism type: unspecified Qualified Code(s): I26.99 - Other pulmonary embolism without acute cor pulmonale
--- NOTE | 2024-06-23 11:29 | Ultrasound Report ---
HISTORY: Lower extremity pain and edema. TECHNIQUE: Bilateral lower extremity venous Doppler evaluation for DVT. COMPARISON: None. FINDINGS: Bilateral common femoral, Greater saphenous, femoral, deep femoral, popliteal, posterior tibial, peroneal, and anterior tibial veins appear patent and compressible. Respiratory variation and augmentation is noted. Surrounding soft tissues are unremarkable. IMPRESSION: No evidence of lower extremity DVT. Electronically signed by Lavon Emmanuel 06-23-2024 11:28 AM
--- NOTE | 2024-06-23 11:56 | Electrocardiogram Report ---
Test Reason : Blood Pressure : */* mmHG Vent. Rate : 113 BPM Atrial Rate : 113 BPM P-R Int : 172 ms QRS Dur : 82 ms QT Int : 338 ms P-R-T Axes : 74 -6 10 degrees QTcB Int : 463 ms Poor data quality, interpretation may be adversely affected Sinus tachycardia Possible Inferior infarct (cited on or before 22-Jun-2024) Abnormal ECG When compared with ECG of 22-Jun-2024 05:53, Nonspecific T wave abnormality now evident in Anterolateral leads Confirmed by Aramis Santana ([id number]) on 06/23/2024 11:56:14 AM Referred By: REFERRED SELF Confirmed By: Aramis Santana
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
[2024-06-23] MEDS: METOPROLOL TARTRATE 1 MG/ML VIAL IV STA ×2 (23:28→23:35)
[2024-06-23] MEDS: SODIUM CHLORIDE 0.9% 250 ML IV ONE (23:41)
[2024-06-24] MEDS: SODIUM CHLORIDE 0.9% 250 ML IV ONE (01:30)
[2024-06-24] MEDS: METOPROLOL TARTRATE 25 MG TAB PO STA (01:44)
[2024-06-24 06:31] LABS: Basophils # (auto) 0.02 K/uL (0.00-0.20); Basophils % (auto) 0.3 %; Eosinophils # (auto) 0.02 K/uL (0.00-0.50); Eosinophils % (auto) 0.3 %; Hematocrit (blood only) 30.1 % (37.0-47.0); Hemoglobin 10.3 g/dl (12.0-16.0); Immature Granulocytes # (auto) 0.06 K/uL (0.01-0.20); Immature Granulocytes % (auto) 0.8 %; Lymphocytes # (auto) 1.47 K/uL (1.20-3.40); Lymphocytes % (auto) 19.4 %; Mean Corpuscular Hemoglobin 32.5 pg (25.0-34.0); Mean Corpuscular Hgb Conc 34.2 g/dL (32.0-36.0); Mean Platelet Volume 9.8 fL (9.4-12.4); Monocytes # (auto) 0.77 K/uL (0.11-0.59); Monocytes % (auto) 10.2 %; Neutrophils # (auto) 5.22 K/uL (1.40-6.50); Platelet Count 175 K/uL (130-400); Red Blood Count 3.17 M/uL (4.20-5.40); White Blood Count 7.56 K/ul (4.8-10.8)
[2024-06-24] MEDS: METOPROLOL TARTRATE 1 MG/ML VIAL IV STA ×2 (06:47→06:55)
[2024-06-24] MEDS: METOPROLOL TARTRATE 1 MG/ML VIAL IV ONE ×3 (06:48)
[2024-06-24 07:21] LABS: BUN Creatinine Ratio 10.9 (10-20); Creatinine Clr Calc Pharmacy 70.4 ml/min; Potassium 3.7 mmol/L (3.5-5.1)
[2024-06-24] MEDS ORDERED: ENOXAPARIN 1 MG/KG SC SCH (07:30)
--- NOTE | 2024-06-24 07:34 | Communication Note ---
Date of Service: June 24, 2024 Early last night patients heart rates were fluctuating 120's to 200's. ekg showed afib with rates in 122. patient asymptomatic except of some feeling of p alpitations. SBP was in 140's. Gave iv Lopressor 5mg x 2 which brought heart rates to 80's but dropped sbp into 80's. got 250cc fluid bolus x2 during the night. HR remained stable and BP improved. Again around 6:40am HR went to 180's. SBP in 140's. Gave iv Lopressor 5mg and HR came to down to 160's. ordered another 2.5mg Lopressor but heart rates improved to 80's but anyway gave 2.5mg Lopressor. sbp in 120's. patient resting comfortably. Consulted cardiology. Notified am providers.
[2024-06-24] MEDS: METOPROLOL TARTRATE 25 MG TAB PO SCH (07:58)
[2024-06-24] MEDS: ENOXAPARIN 100 MG/1ML SYR SQ SCH (07:58)
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
--- NOTE | 2024-06-24 09:22 | Cardiology Consultation ---
Date of Consultation June 24, 2024 Assessment & Plan (1) Paroxysmal atrial fibrillation: (2) Acute pulmonary embolism: (3) Acute respiratory failure with hypoxia: Plan 63-year-old female with acute hypoxic respiratory failure secondary to large bilateral PE with RV strain. Atrial dysrhythmias are consequence of acute PE. Normal left atrial size with hyperdynamic LV function per echocardiogram 06/22/2024. Agree with addition of oral beta-snehal therapy, metoprolol 25 mg t wice daily. Consider titration to 25 mg 3 times daily pending clinical response. Maintain serum potassium greater than 4.0 and serum magnesium greater than 2.0. Continue anticoagulation as per direction of pulmonary medicine. History of Present Illness Reason for Consultation: Rapid atrial fibrillation Requesting Physician: Dr. Doyle Attending Physician: Isacc Wagner MD History of Present Illness 63-year-old female with history of paroxysmal atrial fibrillation, who presented to the ER 06/22/2024 after a near syncopal episode, chest discomfort with associated severe shortness of breath. Reports severe dyspnea with minimal activity. Oxygen saturation 80% on room air upon arrival to the ER. CTA of the chest demonstrates extensive bilateral pulmonary emboli. Echocardiogram with hyperdynamic LV function, moderate RV dilation with reduction of RV function "Castellano sign" present. Elevated high-sensitivity troponin noted. Overnight episodes of rapid atrial fibrillation recorded on telemetry. Heart rate recorded up to 180 bpm. Possible short 5-7 beat runs of nonsustained VT versus A-fib with aberrancy. Treated with intravenous Lopressor. Patient repor ting palpitations during these episodes. Currently sinus rhythm after receiving oral beta-snehal therapy this morning. Denies chest discomfort or shortness of breath at rest. Notes dyspnea with m inimal exertion. No orthopnea, PND, or lower extremity edema. Admits to recent 14-hour truck ride with her who is a commercial counsel. Denies prior history of DVT or pulmonary embolism. Home Medications Medication Instructions Recorded Confirmed Type aspirin 81 mg capsule 81 mg PO DAILY 06/22/24 06/22/24 History famotidine 40 mg tablet 40 mg PO DAILY 06/22/24 06/22/24 History metoprolol tartrate 25 mg tablet 25 mg PO BID 06/22/24 06/22/24 History venlafaxine 150 mg 150 mg PO DAILY 06/22/24 06/22/24 History capsule,extended release 24 hr venlafaxine 37.5 mg 37.5 mg PO DAILY 06/22/24 06/22/24 History capsule,extended release 24 hr ziprasidone HCl 80 mg capsule 80 mg PO BID 06/22/24 06/22/24 History (Geodon) apixaban 5 mg tablet (Eliquis) 5 mg PO BID #74 tabs 06/24/24 Rx Patient History Social History Smoking Status: Never smoker Hx Alcohol Use: No Hx Substance Use: No Preferred Language: [place] Communication Ability: Effective Portfolio Analyst Required: No Beliefs That Will Affect Care: None Current Living Situation: Spouse Feels Safe at Home: Yes Assistive Devices: Glasses Review of Systems Review of Systems: All systems reviewed & are unremarkable except as noted in Subjective Physical Exam Constitutional: well developed and well nourished; no acute distress Respiratory: no respiratory distress, no labored breathing and no retractions Auscultation: no crackles, no rales, no rhonchi and no wheezes Cardiovascular: Rate/Rhythm: regular rate and regular rhythm Heart Sounds: normal S1 and normal S2; no murmur Vessels: no JVD and no carotid bruit Extremities: no edema Gastrointestinal (Abdomen): Inspection/Auscultation: abdomen normal to inspection and normal bowel sounds; abdomen not distended Percussion/Palpation: abdomen soft; abdomen nontender, no guarding and abdomen not rigid Neurologic: CN's II-XI intact bilaterally and moves all extremities; no focal motor deficits Results & Data Vital Signs (Past 12 Hours) Vital Signs Temp Pulse Pulse Resp BP BP BP 06/24/24 08:57 06/24/24 07:27 85 119/74 06/24/24 07:03 83 122/77 06/24/24 07:00 36.6 C 87 20 119/74 06/24/24 06:55 86 107/76 06/24/24 06:47 188 H 143/112 H 06/24/24 03:46 96 H 19 113/71 06/24/24 02:11 89 110/68 06/24/24 01:48 91 H 105/73 06/24/24 01:31 90 98/63 L 06/24/24 01:17 89 84/58 L 06/24/24 01:01 85 85/60 L 06/24/24 00:46 85 75/52 L 06/24/24 00:40 87 89/62 L 06/24/24 00:16 84 90/62 L 06/24/24 00:02 102 H 97/66 L 06/24/24 00:00 107 H 06/23/24 23:58 88 84/58 L 06/23/24 23:35 171 H 105/49 L 06/23/24 23:28 180 H 143/75 H 06/23/24 23:26 197 H 17 143/75 H Pulse Ox O2 Del Method 06/24/24 08:57 Room Air 06/24/24 07:27 06/24/24 07:03 06/24/24 07:00 97 Room Air 06/24/24 06:55 06/24/24 06:47 06/24/24 03:46 91 Room Air 06/24/24 02:11 06/24/24 01:48 06/24/24 01:31 06/24/24 01:17 06/24/24 01:01 06/24/24 00:46 06/24/24 00:40 06/24/24 00:16 06/24/24 00:02 06/24/24 00:00 06/23/24 23:58 06/23/24 23:35 06/23/24 23:28 06/23/24 23:26 92 Room Air Laboratory Results CBC 06/24/24 Range/Units 06:08 WBC 7.56 (4.8-10.8) K/ul RBC 3.17 L (4.20-5.40) M/uL Hgb 10.3 L (12.0-16.0) g/dl Hct 30.1 L (37.0-47.0) % Plt Count 175 (130-400) K/uL Neut # (Auto) 5.22 (1.40-6.50) K/uL Lymph # (Auto) 1.47 (1.20-3.40) K/uL [place] # (Auto) 0.77 H (0.11-0.59) K/uL Eos # (Auto) 0.02 (0.00-0.50) K/uL Baso # (Auto) 0.02 (0.00-0.20) K/uL Comprehensive Metabolic Panel 06/24/24 Range/Units 06:08 Sodium 136 (136-145) mmol/L Potassium 3.7 (3.5-5.1) mmol/L Chloride 105 (98-107) mmol/L Carbon Dioxide 27 (21-32) mmol/L BUN 10 (6-23) mg/dl Creatinine 0.92 (0.6-1.2) mg/dl Glucose 96 (70-99(Fasting)) mg/dl Calcium 8.0 L (8.6-10.3) mg/dl Intake and Output 06/23/24 06/24/24 06/24/24 22:59 06:59 14:59 Intake Total 1000 / 1099.899 11.133 / 11.133 Output Total 200 / 350 Balance 800 / 749.899 11.133 / 11.133 Intake: IV 1000 / 1019.899 11.133 / 11.133 Heparin 34127 Unit/500 ml D5w 500 / 519.899 11.133 / 11.133 25,000 units In 500 ml @ 1,100 UNITS/HR 22 mls/hr IV .[id number] [facility] Rx#:[id number] Sodium Chloride 0.9% 250 ml @ 500 / 500 999 mls/hr IV .Q16M ONE Rx#: [id number] Output: Urine 200 / 200 Other: # Unmeasured Voids 1 1 Weight 86.8 kg Weight Measurement Method Built in [facility] (2) Acute pulmonary embolism Acute cor pulmonale presence: unspecified Pulmonary embolism type: unspecified Qualified Code(s): I26.99 - Other pulmonary embolism without acute cor pulmonale
--- NOTE | 2024-06-24 12:49 | Hospitalist Progress Note ---
Date of Service June 24, 2024 Assessment & Plan (1) Acute respiratory failure with hypoxia: (2) Elevated troponin: (3) Acute pulmonary embolism: (4) HTN (hypertension): (5) Atrial fibrillation: (6) Mood disorder: (7) Bipolar 1 disorder: Plan The patient is a 63-year-old female with a past medical history of HTN, A-fib, mood disorder who presents to the ED on 06/22/2024 with complaints of shortness of breath and near syncope and chest pain found to have extensive bilateral PE with right heart strain. Extensive Acute Bilateral PE Acute hypoxic respiratory failure Right heart strain Right upper lobe opacitypossible infarct Patient presents with shortness of breath, chest pain and near syncope. 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 Evidence of right heart strain present. Nonspecific 1.7 cm anterior right upper lobe opacity; possibly pulmonary infarct High-sensitivity troponin elevated to 690.8 and down trended Echocardiogram shows EF of greater than 70%; Castellano sign present. Right ventricle mildly dilated. Patient initially started on heparin drip; transition over to Lovenox for now. Plan to transition over to Eliquis possibly tomorrow. Cost of Eliquis of about $68. Patient will need to be on long-term anticoagulation given her atrial fibrillation and bilateral extensive PE. Will need CT chest in about 2 to 3 months given right upper lobe peripheral opacity. Will need echocardiogram in 3 months. I called and updated patient's primary care doctor on 06/24/2024 and Provided clinical updates and discussed regarding obtaining follow-up scans. Patient has follow-up set up with primary care doctor in July 15. Atrial fibrillation with RVR; Patient had atrial fibrillation with rapid ventricular rate overnight on June 23 to June 24 continue metoprolol and Eliquis Hx of mood disorder/bipolar: Continue Geodon/Effexor Full code DVT prophylaxis: lovenox Time spent evaluating patient, direct bedside care, chart review, placing orders, interpretation of diagnostic studies, discussion with consultants, patient, and family members, as well as other required patient management activities is 50 minutes Please note the above document was generated using voice recognition software. It may contain grammatical, syntax or spelling errors. Any formal questions or concerns about the content, text or information contained within the body of this dictation should be directly addressed to the provider for clarification Admission and Anticipated Discharge Date Admission Date: June 22, 2024 Subjective Patient seen and examined at bedside She has been weaned off to room air; reports that her chest pain has improved Overnight, patient went into atrial fibrillation with RVR with ventricular rate in 160s to 180s; required IV metoprolol. Review of Systems Review of Systems: All systems reviewed & are unremarkable except as noted in Subjective Physical Exam Physical Exam: Constitutional: WD/WN, vitals as above, NAD, sitting up in bed, pleasant, conversing easily Respiratory: normal respiratory effort, lungs clear to auscultation, no wheeze, rales, rhonchi. Normal insp/exp effort, no accessory muscle use Cardiovascular: RRR, no murmur, no edema Vessels: no JVD or carotid bruit Chest: normal inspection of chest Abdomen: normal bowel sounds, soft, nontender, no hepatosplenomegaly Musculoskeletal: no cyanosis or clubbing, extremities motor strength 5/5 Skin: no rashes, warm and dry normal turgor Neurologic: PERRL, EOMI, accommodation nl, no face palsy, no dysarthria CN's II- XI intact bilaterally and moves all extremities Results & Data Results & Data Vital Signs (Past 12 Hours) Vital Signs Temp Pulse Pulse Resp BP BP BP 06/24/24 11:14 36.6 C 79 20 116/82 06/24/24 08:57 06/24/24 07:27 85 119/74 06/24/24 07:03 83 122/77 06/24/24 07:00 36.6 C 87 20 119/74 06/24/24 06:55 86 107/76 06/24/24 06:47 188 H 143/112 H 06/24/24 03:46 96 H 19 113/71 06/24/24 02:11 89 110/68 06/24/24 01:48 91 H 105/73 06/24/24 01:31 90 98/63 L 06/24/24 01:17 89 84/58 L 06/24/24 01:01 85 85/60 L 06/24/24 00:46 85 75/52 L Pulse Ox O2 Del Method 06/24/24 11:14 93 Room Air 06/24/24 08:57 Room Air 06/24/24 07:27 06/24/24 07:03 06/24/24 07:00 97 Room Air 06/24/24 06:55 06/24/24 06:47 06/24/24 03:46 91 Room Air 06/24/24 02:11 06/24/24 01:48 06/24/24 01:31 06/24/24 01:17 06/24/24 01:01 06/24/24 00:46 (3) Acute pulmonary embolism Acute cor pulmonale presence: unspecified Pulmonary embolism type: unspecified Qualified Code(s): I26.99 - Other pulmonary embolism without acute cor pulmonale
[2024-06-24] MEDS: POTASSIUM CHLORIDE CRTAB 20 MEQ TABCR PO STA (12:52)
[2024-06-24 13:45] LABS: ANTI-Xa, UFH(UnfractionatedHep 0.45 IU/ml (0.3-0.7)
--- NOTE | 2024-06-24 13:59 | Electrocardiogram Report ---
Test Reason : Blood Pressure : */* mmHG Vent. Rate : 97 BPM Atrial Rate : 97 BPM P-R Int : 158 ms QRS Dur : 70 ms QT Int : 398 ms P-R-T Axes : 55 6 49 degrees QTcB Int : 505 ms Normal sinus rhythm Low voltage QRS Nonspecific T wave abnormality Abnormal ECG When compared with ECG of 22-Jun-2024 07:09, No significant change was found Confirmed by Bayron Partida ([id number] on 06/24/2024 1:59:43 PM Referred By: REFERRED SELF Confirmed By: Bayron Partida
--- NOTE | 2024-06-24 14:42 | Electrocardiogram Report ---
Test Reason : Blood Pressure : */* mmHG Vent. Rate : 122 BPM Atrial Rate : * BPM P-R Int : * ms QRS Dur : 76 ms QT Int : 304 ms P-R-T Axes : * -10 49 degrees QTcB Int : 433 ms Atrial fibrillation with rapid ventricular response with premature ventricular or aberrantly conducte d complexes Abnormal ECG When compared with ECG of 23-Jun-2024 02:25, (unconfirmed) Atrial fibrillation has replaced Sinus rhythm Confirmed by Bayron Partida ([id number] on 06/24/2024 2:41:25 PM Referred By: REFERRED SELF Confirmed By: Bayron Partida
[2024-06-25 06:34] LABS: Basophils # (auto) 0.03 K/uL (0.00-0.20); Basophils % (auto) 0.5 %; Eosinophils % (auto) 1.8 %; Hematocrit (blood only) 29.7 % (37.0-47.0); Hemoglobin 10.2 g/dl (12.0-16.0); Immature Granulocytes # (auto) 0.03 K/uL (0.01-0.20); Immature Granulocytes % (auto) 0.5 %; Lymphocytes # (auto) 1.19 K/uL (1.20-3.40); Lymphocytes % (auto) 21.8 %; Mean Corpuscular Hemoglobin 31.8 pg (25.0-34.0); Mean Corpuscular Hgb Conc 34.3 g/dL (32.0-36.0); Mean Corpuscular Volume 92.5 fL (80.0-100.0); Mean Platelet Volume 9.4 fL (9.4-12.4); Monocytes # (auto) 0.46 K/uL (0.11-0.59); Monocytes % (auto) 8.4 %; Neutrophils # (auto) 3.66 K/uL (1.40-6.50); Platelet Count 200 K/uL (130-400); RDW Coefficient of Variation 12.6 % (11.5-14.5); RDW Standard Deviation 42.7 fL (36.4-46.3); Red Blood Count 3.21 M/uL (4.20-5.40); White Blood Count 5.47 K/ul (4.8-10.8)
[2024-06-25 06:58] LABS: BUN Creatinine Ratio 10.1 (10-20); Calcium 8.1 mg/dl (8.6-10.3); Creatinine Clr Calc Pharmacy 81.9 ml/min; Potassium 3.6 mmol/L (3.5-5.1)
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
[2024-06-25] MEDS: APIXABAN 5 MG TABLET PO SCH (10:24)
[2024-06-25 11:15] VITALS: RESP 16; TEMP 98.2; O2SAT 93
[2024-06-25 11:56] VITALS: BP 119/74; PULSE 89
--- NOTE | 2024-06-25 13:44 | Cardiology Progress Note ---
Date of Service June 25, 2024 Assessment & Plan (1) Paroxysmal atrial fibrillation: (2) Acute pulmonary embolism: (3) Acute respiratory failure with hypoxia: Plan 63-year-old female with acute hypoxic respiratory failure secondary to large bilateral PE with RV strain. Runs of atrial tachycardia less frequent overnight with addition of beta-snehal therapy. Normal left atrial size with hyperdynamic LV function per echocardiogram 06/22/2024. Recommendations: * Continue metoprolol 25 mg twice daily. * Maintain serum potassium greater than 4.0 and serum magnesium greater than 2.0. * Transition to Eliquis at discharge. * Cardiology will sign off. Admission and Anticipated Discharge Date Admission Date: June 22, 2024 Subjective 63-year-old female seen examined the bedside. Short run of atrial tachycardia recorded this morning at approximately 6:30 AM. No associated symptoms. Otherwise, she remains in sinus rhythm in the 70s and 80s. Denies palpitations, chest discomfort, or orthopnea. Dyspnea on exertion improving since admission. Tolerating current medications. Review of Systems Review of Systems: All systems reviewed & are unremarkable except as noted in Subjective Physical Exam Constitutional: well developed and well nourished; no acute distress Respiratory: no respiratory distress, no labored breathing and no retractions Auscultation: no crackles, no rales, no rhonchi and no wheezes Cardiovascular: Rate/Rhythm: regular rate and regular rhythm Heart Sounds: normal S1 and normal S2; no murmur Vessels: no JVD and no carotid bruit Extremities: no edema Gastrointestinal (Abdomen): Inspection/Auscultation: abdomen normal to inspection and normal bowel sounds; abdomen not distended Percussion/Palpation: abdomen soft; abdomen nontender, no guarding and abdomen not rigid Neurologic: CN's II-XI intact bilaterally and moves all extremities; no focal motor deficits Results & Data Vital Signs (Past 12 Hours) Vital Signs Temp Pulse Pulse Resp BP BP Pulse Ox 06/25/24 11:54 36.8 C 89 16 106/69 119/74 93 06/25/24 11:13 36.8 C 89 16 106/69 93 06/25/24 11:00 81 06/25/24 11:00 06/25/24 08:09 36.5 C 96 H 18 120/82 94 06/25/24 02:18 36.9 C 80 18 126/81 95 O2 Del Method 06/25/24 11:54 06/25/24 11:13 Room Air 06/25/24 11:00 06/25/24 11:00 Room Air 06/25/24 08:09 Room Air 06/25/24 02:18 Room Air Laboratory Results CBC 06/25/24 Range/Units 06:10 WBC 5.47 (4.8-10.8) K/ul RBC 3.21 L (4.20-5.40) M/uL Hgb 10.2 L (12.0-16.0) g/dl Hct 29.7 L (37.0-47.0) % Plt Count 200 (130-400) K/uL Neut # (Auto) 3.66 (1.40-6.50) K/uL Lymph # (Auto) 1.19 L (1.20-3.40) K/uL [place] # (Auto) 0.46 (0.11-0.59) K/uL Eos # (Auto) 0.10 (0.00-0.50) K/uL Baso # (Auto) 0.03 (0.00-0.20) K/uL Comprehensive Metabolic Panel 06/25/24 Range/Units 06:10 Sodium 135 L (136-145) mmol/L Potassium 3.6 (3.5-5.1) mmol/L Chloride 104 (98-107) mmol/L Carbon Dioxide 24 (21-32) mmol/L BUN 8 (6-23) mg/dl Creatinine 0.79 (0.6-1.2) mg/dl Glucose 82 (70-99(Fasting)) mg/dl Calcium 8.1 L (8.6-10.3) mg/dl Intake and Output 06/24/24 06/25/24 06/25/24 22:59 06:59 14:59 Intake Total 0 511.133 Balance 0 511.133 Intake: IV 0 .133 Heparin 69461 Unit/500 ml D5w 0 133 25,000 units In 500 ml @ 1,200 UNITS/HR 24 mls/hr IV .[id number] [facility] Rx#:[id number] Other: # Unmeasured Voids 2 1 Weight 86.1 kg 86.1 kg Weight Measurement Method [facility] Weight 03/19/25 06:59 Weight 86.1 kg (2) Acute pulmonary embolism Acute cor pulmonale presence: unspecified Pulmonary embolism type: unspecified Qualified Code(s): I26.99 - Other pulmonary embolism without acute cor pulmonale
== END 2024-06-25 12:52 | disposition home or self-care (01) | DRG 175 ==
LOC: EDBD → ED 05:45 → SUATTDRO 09:40 → 2E 09:40